=== PATIENT | male | born 1960 | race Caucasian/White ===

== ENCOUNTER 2023-03-27 08:26 | Outpatient (CLI) | payer BC ==
[2023-03-27] MEDS ORDERED: Magnevist 469MG/ML 20 ML VIAL ONE (09:48)
== END 2023-03-27 08:27 | disposition home or self-care (01) ==
LOC: SCSMRI 08:26
PROVIDERS: ATTEND Family Medicine
DX: R93.89 Abnormal findings on diagnostic imaging of other specified body structures (principal); N28.1 Cyst of kidney, acquired; K76.89 Other specified diseases of liver; K86.89 Other specified diseases of pancreas
CPT/HCPCS: 74183; A9579

== ENCOUNTER 2024-10-08 10:40 | Outpatient (CLI) | payer BC ==
[2024-10-08 13:43] LABS: #Basophils 0.06 10x3/uL (0.0-0.2); #Eosinophils 0.56 10x3/uL (0.0-0.7); #Monocytes 0.60 10x3/uL (0.11-0.59); #Neutrophils 2.96 10x3/uL (1.40-6.50); %Basophils 1.0 % (0.0-1.0); %Eosinophils 9.2 % (0.0-10.0); %Lymphocytes 31.1 % (21.0-51.0); %Monocytes 9.9 % (0.0-10.0); %Neutrophils 48.6 % (42.0-75.0); Hematocrit 45.8 % (42.0-52.0); Hemoglobin 15.6 g/dL (14.0-18.0); Mean Corpuscular Hemoglobin 30.4 pg (27.0-31.0); Mean Corpuscular Volume 89.3 fL (78.0-98.0); Platelet Count 224 10x3/uL (130-400); Red Blood Cell (RBC) Count 5.13 mill/uL (4.70-6.10); White Blood Cell (WBC) Count 6.08 10x3/uL (4.8-10.8)
[2024-10-08 14:21] LABS: Anion Gap 15 mmol/L (10-20); BUN (Urea Nitrogen) 19 mg/dL (8.4-25.7); Calc. Creatinine Clearance 0 mL/min (70-130); Calcium 9.7 mg/dL (7.8-10.44); Carbon Dioxide 25 mmol/L (23-31); Chloride 108 mmol/L (98-107); Glucose 83 mg/dL (80-115); Potassium 4.2 mmol/L (3.5-5.1); Sodium 144 mmol/L (136-145)
== END 2024-10-08 10:41 | disposition home or self-care (01) ==
LOC: LABBT 10:40
PROVIDERS: ATTEND Orthopaedic Surgery
DX: Z01.818 Encounter for other preprocedural examination (principal); M65.342 Trigger finger, left ring finger; M65.332 Trigger finger, left middle finger
CPT/HCPCS: 71046; 80048; 85025; 93005; 93010

== ENCOUNTER 2024-10-10 05:40 | Day surgery (SDC) | payer BC ==
[2024-10-08 10:57] VITALS: BMI 33.5
[2024-10-10] MEDS ORDERED: fentaNYL PF 100 MCG/2 ML SYRINGE ONE (06:40)
[2024-10-10] MEDS ORDERED: Ketamine In 0.9 % NaCl 50 MG/5 ML SYRINGE ONE (06:40)
[2024-10-10] MEDS ORDERED: PROPOFOL 40 ML ONE (06:40)
[2024-10-10] MEDS ORDERED: CEFAZOLIN 2 GM VIAL ONE (06:50)
[2024-10-10] MEDS ORDERED: Ketorolac Tromethamine 30 MG (1 mL) VIAL ONE (08:26)
== END 2024-10-10 09:21 | disposition home or self-care (01) ==
LOC: SDC 05:40
PROVIDERS: ATTEND Orthopaedic Surgery
PROC: 0LN80ZZ Release Left Hand Tendon, Open Approach (ICD-10-PCS; principal; 2024-10-10)
DX: M65.342 Trigger finger, left ring finger (principal); M65.332 Trigger finger, left middle finger; M65.341 Trigger finger, right ring finger; M65.331 Trigger finger, right middle finger; E78.00 Pure hypercholesterolemia, unspecified; M10.9 Gout, unspecified; Z98.41 Cataract extraction status, right eye; Z90.89 Acquired absence of other organs; Z98.890 Other specified postprocedural states; Z79.899 Other long term (current) drug therapy
CPT/HCPCS: J0665; J1885; J2250; J2704; J3490